=== PATIENT | male | born 1960 | race Caucasian/White ===

== ENCOUNTER 2021-06-14 08:13 | Outpatient (CLI) | payer OTHER | END 2021-06-14 08:14 | disposition home or self-care (01) | LOC: BICMAMMO 08:13 | PROVIDERS: ATTEND Family Medicine | DX: Z13.820 Encounter for screening for osteoporosis (principal); Z48.22 Encounter for aftercare following kidney transplant; M85.89 Other specified disorders of bone density and structure, multiple sites | CPT/HCPCS: 77080 ==

== ENCOUNTER 2024-08-18 12:16 | Inpatient (IN) | payer OTHER, SELFPAY ==
[2024-08-18 12:59] LABS: #Basophils 0.07 10x3/uL (0.0-0.2); #Eosinophils Less than 0.03 10x3/uL (0.0-0.7); %Basophils 0.4 % (0.0-1.0); %Eosinophils 0.1 % (0.0-10.0); %Lymphocytes 4.6 % (21.0-51.0); %Monocytes 5.6 % (0.0-10.0); %Neutrophils 88.2 % (42.0-75.0); Hematocrit 40.7 % (42.0-52.0); Hemoglobin 13.6 g/dL (14.0-18.0); Mean Corpuscular HGB CONC 33.4 g/dL (32.0-36.0); Mean Corpuscular Hemoglobin 29.7 pg (27.0-31.0); Mean Corpuscular Volume 88.9 fL (78.0-98.0); Mean Platelet Volume 9.9 fL (7.4-10.4); Platelet Count 160 10x3/uL (130-400); RBC Distribution Width 15.2 % (11.5-14.5); Red Blood Cell (RBC) Count 4.58 mill/uL (4.70-6.10)
[2024-08-18] MEDS: Cyanocobalamin (Vitamin B-12) 1,000 MCG TAB PO SCH (13:00)
[2024-08-18 13:19] LABS: ALT (SGPT) 15 U/L (8-55); AST (SGOT) 33 U/L (5-34); Albumin 3.3 g/dL (3.4-4.8); Alkaline Phosphatase 80 U/L (40-110); Anion Gap 16 mmol/L (10-20); BUN (Urea Nitrogen) 15 mg/dL (8.4-25.7); Bilirubin, Total 0.6 mg/dL (0.2-1.2); Calc. Creatinine Clearance 0 mL/min (70-130); Calcium 9.1 mg/dL (7.8-10.44); Carbon Dioxide 23 mmol/L (23-31); Chloride 98 mmol/L (98-107); Estimated GFR 88; Glucose 122 mg/dL (80-115); Potassium 4.1 mmol/L (3.5-5.1); Protein, Total 7.3 g/dL (5.8-8.1); Sodium 133 mmol/L (136-145)
[2024-08-18 13:20] LABS: Troponin I 0.078 ng/mL (< 0.028)
[2024-08-18] MEDS ORDERED: Cefepime 2 GM VIAL ONE (13:41)
[2024-08-18] MEDS ORDERED: Sodium Chloride 0.9% 100 ML ONE (13:41)
[2024-08-18] MEDS ORDERED: Acetaminophen 500 MG TAB ONE (13:41)
[2024-08-18] MEDS ORDERED: Vancomycin 1.75 GM in Sodium Chloride 0.9% 500 ML IVPB SCH (14:00)
[2024-08-18 14:33] LABS: Bacteria/HPF None Seen HPF (None Seen); Bilirubin Negative (Negative); Blood, Urine 1+ (Negative); CAUTI Indications for Culture Alt mental st,lethar; Clarity Clear (Clear); Glucose, Urine (Dipstick) Greater than 1000 mg/dL (Negative); Ketone, Urine Trace mg/dL (Negative); Leukocyte Negative Leu/uL (Negative); Nitrite Negative (Negative); Protein, Urine (Dipstick) 100 mg/dL (Neg-Trace); RBC/HPF 0-3 HPF (0-3); Specific Gravity, Urine 1.029 (1.002-1.036); Squamous Epithelial None Seen HPF (0-3); Urobilinogen Normal mg/dL (Less than 2); WBC/HPF 0-3 HPF (0-3)
[2024-08-18 14:37] LABS: Urine Culture Reflex No No
[2024-08-18] MEDS ORDERED: Aspirin Chewable 81 MG TAB ONE (14:49)
[2024-08-18 14:54] LABS: Amphetamine Not Detected (NotDetected); Barbiturates Screen Not Detected (NotDetected); Benzodiazepine Screen Not Detected (NotDetected); Cocaine Metabolite Screen Not Detected (NotDetected); Methadone Not Detected (NotDetected); Methamphetamine Not Detected (NotDetected); Opiate Screen Not Detected (NotDetected); Oxycodone Screen Not Detected (NotDetected); Phencyclidine (PCP) Not Detected (NotDetected); THC/Cannabinoid Screen Not Detected (NotDetected); Tricyclic Screen Not Detected (NotDetected)
[2024-08-18 15:01] LABS: Actual Bicarbonate (HCO3v) 24.6 mEq/L (22-28); Analyzer IN Cardio ER; Base Excess 1.5 mEq/L (-2.0 to +3.0); Calcium, Ionized (venous) 1.07 mmol/L (1.16-1.32); Chloride (VBG) 98 mmol/L (98-106); Hematocrit-VBG 40 % (42.0-52.0); Hemoglobin (Hb) 13.7 g/dL (13.1-17.2); Potassium (VBG) 3.58 mmol/L (3.70-5.30); Sodium 135 mmol/L (133-146); pH (venous) 7.476 (7.32-7.43)
[2024-08-18 15:08] LABS: Lipase 9 U/L (8-78)
[2024-08-18 15:10] LABS: Acetaminophen 12 mcg/mL (Less than 10); Alcohol Less than 10.0 mg/dL (Less than 10); Salicylate Less than 8.0 mg/dL (Less than 8.0)
[2024-08-18] MEDS ORDERED: Glucagon 1 MG/ML KIT IM PRN (16:04)
[2024-08-18] MEDS ORDERED: Dextrose 50% Abboject 50 ML SYRINGE SLOW IVP PRN (16:04)
[2024-08-18] MEDS ORDERED: Dextrose 5% in Water 1,000 ML IV PRN (16:04)
[2024-08-18] MEDS ORDERED: Albuterol 200 PUFF (6.7GM INHALER) INH PRN (16:46)
[2024-08-18 16:57] LABS: Legionella Urinary Ag Negative (Negative)
[2024-08-18 17:11] LABS: Troponin I 0.092 ng/mL (< 0.028)
[2024-08-18 17:12] LABS: Glucose 96 mg/dL (80-115)
[2024-08-18 20:23] LABS: Troponin I 0.071 ng/mL (< 0.028)
[2024-08-18 21:39] LABS: Glucose 103 mg/dL (80-115)
[2024-08-18] MEDS: Vancomycin (BATCH) 1.75 GM in Premix 1 BAG IVPB SCH (22:16)
[2024-08-18] MEDS: Azithromycin 500 MG in Sodium Chloride 0.9% 250 ML 250 ML IVPB SCH (22:18)
[2024-08-19] MEDS ORDERED: Atorvastatin Calcium 40 MG TAB ONE (00:30)
[2024-08-19] MEDS ORDERED: Lisinopril 10 MG TAB ONE (00:30)
[2024-08-19] MEDS ORDERED: Carvedilol 25 MG TAB ONE ×2 (00:31→08:55)
[2024-08-19] MEDS ORDERED: Tamsulosin HCl 0.4 MG CAP ONE (00:31)
[2024-08-19] MEDS ORDERED: Cefepime 2 GM VIAL ONE ×3 (00:34→17:44)
[2024-08-19] MEDS ORDERED: Sodium Chloride 0.9% 100 ML ONE ×3 (00:34→17:44)
[2024-08-19] MEDS: Tacrolimus 0.5 MG CAP PO SCH (00:51)
[2024-08-19] MEDS: Lisinopril 10 MG TAB PO SCH (00:51)
[2024-08-19] MEDS: Tacrolimus 1 MG CAP PO SCH (00:53)
[2024-08-19] MEDS: Carvedilol 25 MG TAB PO SCH (00:54)
[2024-08-19] MEDS: Mycophenolate DR 180 MG TAB PO SCH (00:54)
[2024-08-19] MEDS: Atorvastatin Calcium 40 MG TAB PO SCH (00:54)
[2024-08-19] MEDS: Tamsulosin HCl 0.4 MG CAP PO SCH (00:56)
[2024-08-19] MEDS: Lactated Ringer's 1,000 ML IV SCH ×3 (00:58→14:00)
[2024-08-19] MEDS: metFORMIN 500 MG TAB PO SCH ×3 (01:00→13:18)
[2024-08-19] MEDS: Cefepime 2 GM in Sodium Chloride 0.9% 100 ML IVPB SCH ×2 (01:04→09:02)
[2024-08-19] MEDS: Vancomycin 1.5 GM in Sodium Chloride 0.9% 250 ML 300 ML IVPB SCH (02:16)
[2024-08-19] MEDS ORDERED: Vancomycin 1 GM/200 ML (FROZEN) BAG ONE (02:24)
[2024-08-19] MEDS: Vancomycin 1 GM in Premix 1 BAG IVPB SCH (02:31)
[2024-08-19 05:58] LABS: #Basophils 0.03 10x3/uL (0.0-0.2); #Eosinophils Less than 0.03 10x3/uL (0.0-0.7); %Basophils 0.2 % (0.0-1.0); %Monocytes 2.9 % (0.0-10.0); %Neutrophils 93.2 % (42.0-75.0); Hematocrit 39.1 % (42.0-52.0); Hemoglobin 12.5 g/dL (14.0-18.0); Mean Corpuscular Hemoglobin 29.1 pg (27.0-31.0); Mean Corpuscular Volume 90.9 fL (78.0-98.0); Platelet Count 135 10x3/uL (130-400); RBC Distribution Width 15.6 % (11.5-14.5)
[2024-08-19 06:30] LABS: ALT (SGPT) 17 U/L (8-55); AST (SGOT) 48 U/L (5-34); Albumin 2.5 g/dL (3.4-4.8); Alkaline Phosphatase 60 U/L (40-110); Anion Gap 17 mmol/L (10-20); BUN (Urea Nitrogen) 16 mg/dL (8.4-25.7); Bilirubin, Total 0.5 mg/dL (0.2-1.2); Calc. Creatinine Clearance 93 mL/min (70-130); Calcium 8.6 mg/dL (7.8-10.44); Carbon Dioxide 19 mmol/L (23-31); Chloride 101 mmol/L (98-107); Estimated GFR 100; Globulin 3.8 g/dL (2.4-3.5); Glucose 112 mg/dL (80-115); Potassium 4.2 mmol/L (3.5-5.1); Protein, Total 6.3 g/dL (5.8-8.1); Sodium 133 mmol/L (136-145)
[2024-08-19 07:47] LABS: Glucose 114 mg/dL (80-115)
[2024-08-19 07:50] LABS: Vancomycin, Random 18.5 ug/mL (See Comment)
[2024-08-19] MEDS ORDERED: Aspirin Chewable 81 MG TAB ONE (08:55)
[2024-08-19] MEDS ORDERED: Amlodipine 5 MG TAB ONE (08:55)
[2024-08-19] MEDS ORDERED: Enoxaparin 40 MG (0.4 mL) SYRINGE ONE (08:56)
[2024-08-19] MEDS ORDERED: predniSONE 5 MG TAB PO SCH (09:00)
[2024-08-19] MEDS: Enoxaparin 40 MG (0.4 mL) SYRINGE SC SCH (09:02)
[2024-08-19] MEDS: Aspirin Chewable 81 MG TAB PO SCH (09:02)
[2024-08-19] MEDS: Amlodipine 10 MG TAB PO SCH (09:02)
[2024-08-19] MEDS: Acetaminophen 650 MG Suppository PR PRN (09:17)
[2024-08-19] MEDS ORDERED: Acetaminophen 325 MG TAB ONE (09:18)
[2024-08-19] MEDS: Acetaminophen 500 MG TAB PO SCH (10:30)
[2024-08-19 11:58] LABS: Glucose 210 mg/dL (80-115)
[2024-08-19] MEDS ORDERED: Vancomycin 1 GM in Premix 1 BAG IVPB SCH (12:00)
[2024-08-19] MEDS: Ipratropium/Albuterol 3 ML NEB NEB SCH (12:35)
[2024-08-19] MEDS: Magnesium Oxide 400 MG TAB PO SCH (13:18)
[2024-08-19] MEDS ORDERED: Ipratropium/Albuterol 3 ML NEB ONE ×2 (13:28→19:00)
[2024-08-19] MEDS: VANCOMYCIN 1.25 GM/250 ML BAG 1.25 GM in Premix 1 BAG IVPB SCH (14:12)
[2024-08-19 14:36] LABS: Actual Bicarbonate (HCO3a) 23.7 mEq/L (22-28); Base Excess (BEa) -2.4 mEq/L (-2.0 to +3.0); CO2 Tension 46.3 mmHg (35.0-45.0); Calcium, Ionized (arterial) 1.15 mmol/L (1.12-1.30); Hematocrit-ABG 37 % (42.0-52.0); Hemoglobin (Hb) 12.5 g/dL (14.0-18.0); Potassium - ABG Lab 3.59 mmol/L (3.70-5.30); pH, Arterial 7.327 (7.35-7.45)
[2024-08-19 14:38] LABS: Puncture Site Right Brachial art
[2024-08-19 14:39] LABS: ALV-art Gradient 161.325 mmHg (0-20)
[2024-08-19] MEDS: Fluticasone Propionate Nasal Spray 16 gm Bottle NASAL SCH (14:43)
[2024-08-19] MEDS: Cholecalciferol 1,000 UNITS (25 MCG) TAB PO SCH (15:09)
[2024-08-19] MEDS: Azithromycin 500 MG in Sodium Chloride 0.9% 250 ML 250 ML IVPB SCH (15:47)
[2024-08-19] MEDS ORDERED: Furosemide 40 MG (4 mL) VIAL SLOW IVP SCH (16:30)
[2024-08-19] MEDS: predniSONE 20 MG TAB PO SCH (16:55)
[2024-08-19] MEDS ORDERED: Furosemide 20 MG (2 mL) VIAL ONE (17:28)
[2024-08-19] MEDS: Furosemide 40 MG (4 mL) VIAL SLOW IVP SCH (17:33)
[2024-08-19 21:34] LABS: Glucose 166 mg/dL (80-115)
[2024-08-20 00:10] LABS: Glucose 180 mg/dL (80-115)
[2024-08-20] MEDS ORDERED: Ipratropium/Albuterol 3 ML NEB ONE ×2 (00:43→00:53)
[2024-08-20] MEDS ORDERED: Sodium Chloride For Inhalation 0.9% 3 ML NEB ONE (00:53)
[2024-08-20 03:40] LABS: Strep pneumo Urine Ag NEGATIVE (NEGATIVE)
[2024-08-20 03:43] LABS: #Basophils Less than 0.03 10x3/uL (0.0-0.2); #Eosinophils Less than 0.03 10x3/uL (0.0-0.7); %Basophils 0.2 % (0.0-1.0); %Lymphocytes 3.9 % (21.0-51.0); %Monocytes 3.8 % (0.0-10.0); %Neutrophils 91.4 % (42.0-75.0); Hematocrit 33.6 % (42.0-52.0); Hemoglobin 10.9 g/dL (14.0-18.0); Mean Corpuscular HGB CONC 32.4 g/dL (32.0-36.0); Mean Corpuscular Hemoglobin 29.5 pg (27.0-31.0); Mean Corpuscular Volume 90.8 fL (78.0-98.0); Mean Platelet Volume 10.6 fL (7.4-10.4); Platelet Count 155 10x3/uL (130-400); RBC Distribution Width 15.8 % (11.5-14.5)
[2024-08-20 03:50] LABS: ALT (SGPT) 21 U/L (8-55); AST (SGOT) 47 U/L (5-34); Albumin 2.5 g/dL (3.4-4.8); Alkaline Phosphatase 67 U/L (40-110); Anion Gap 21 mmol/L (10-20); BUN (Urea Nitrogen) 32 mg/dL (8.4-25.7); Bilirubin, Total 0.4 mg/dL (0.2-1.2); Calc. Creatinine Clearance 69 mL/min (70-130); Calcium 8.8 mg/dL (7.8-10.44); Carbon Dioxide 16 mmol/L (23-31); Chloride 102 mmol/L (98-107); Estimated GFR 78; Globulin 3.8 g/dL (2.4-3.5); Glucose 179 mg/dL (80-115); Protein, Total 6.3 g/dL (5.8-8.1); Sodium 135 mmol/L (136-145)
[2024-08-20] MEDS: Insulin Lispro 100 UNIT/ML 10 ML VIAL SC PRN ×2 (06:15→22:17)
[2024-08-20 08:13] LABS: Glucose 166 mg/dL (80-115)
[2024-08-20] MEDS: predniSONE 20 MG TAB PO SCH (08:37)
[2024-08-20] MEDS: Famotidine/PF 20 mg/2ml Vial SLOW IVP SCH (08:38)
[2024-08-20] MEDS: FLU (Fluarix Triv) TS24-25(6MOS UP)/PF 45 MCG/0.5 ML Syringe IM ONE (08:59)
[2024-08-20 12:13] LABS: Glucose 207 mg/dL (80-115)
[2024-08-20] MEDS: Vancomycin 1 GM in Premix 1 BAG IVPB SCH (14:53)
[2024-08-20 17:42] LABS: Glucose 285 mg/dL (80-115)
[2024-08-20] MEDS: Acetaminophen 500 MG TAB PO PRN (17:48)
[2024-08-20] MEDS: Tacrolimus 0.5 MG CAP PO SCH (17:51)
[2024-08-20 22:05] LABS: Glucose 266 mg/dL (80-115)
[2024-08-21 05:55] LABS: #Basophils Less than 0.03 10x3/uL (0.0-0.2); #Eosinophils Less than 0.03 10x3/uL (0.0-0.7); %Basophils 0.2 % (0.0-1.0); %Eosinophils 0.2 % (0.0-10.0); %Lymphocytes 3.7 % (21.0-51.0); %Monocytes 6.8 % (0.0-10.0); %Neutrophils 88.6 % (42.0-75.0); Hematocrit 36.6 % (42.0-52.0); Mean Corpuscular HGB CONC 32.8 g/dL (32.0-36.0); Mean Corpuscular Hemoglobin 29.6 pg (27.0-31.0); Mean Corpuscular Volume 90.1 fL (78.0-98.0); Mean Platelet Volume 10.1 fL (7.4-10.4); Platelet Count 187 10x3/uL (130-400); RBC Distribution Width 15.4 % (11.5-14.5); Red Blood Cell (RBC) Count 4.06 mill/uL (4.70-6.10)
[2024-08-21 06:16] LABS: Vancomycin, Random 26.3 ug/mL (See Comment)
[2024-08-21 06:18] LABS: ALT (SGPT) 25 U/L (8-55); AST (SGOT) 49 U/L (5-34); Albumin 2.4 g/dL (3.4-4.8); Alkaline Phosphatase 72 U/L (40-110); Anion Gap 14 mmol/L (10-20); BUN (Urea Nitrogen) 34 mg/dL (8.4-25.7); Bilirubin, Total 0.4 mg/dL (0.2-1.2); Calc. Creatinine Clearance 125 mL/min (70-130); Calcium 9.4 mg/dL (7.8-10.44); Carbon Dioxide 21 mmol/L (23-31); Chloride 102 mmol/L (98-107); Estimated GFR 98; Globulin 3.9 g/dL (2.4-3.5); Glucose 167 mg/dL (80-115); Potassium 3.4 mmol/L (3.5-5.1); Protein, Total 6.3 g/dL (5.8-8.1); Sodium 134 mmol/L (136-145)
[2024-08-21 08:10] LABS: Glucose 170 mg/dL (80-115)
[2024-08-21 10:30] LABS: Actual Bicarbonate (HCO3a) 21.1 mEq/L (22-28); Base Excess (BEa) -1.9 mEq/L (-2.0 to +3.0); CO2 Tension 31.1 mmHg (35.0-45.0); Calcium, Ionized (arterial) 1.23 mmol/L (1.12-1.30); Carboxyhemoglobin (COHb) 0.6 gm% (0.0-3.0); Hematocrit-ABG 38 % (42.0-52.0); Hemoglobin (Hb) 12.9 g/dL (14.0-18.0); Potassium - ABG Lab 3.37 mmol/L (3.70-5.30)
[2024-08-21] MEDS ORDERED: Electrolyte Replacement Protocol 1 EACH FS PRN (10:33)
[2024-08-21 10:46] LABS: O2 Tension (PaO2), arterial 53.9 mmHg (> 80.0); Puncture Site Right Radial artery
[2024-08-21 11:39] LABS: Glucose 232 mg/dL (80-115)
[2024-08-21] MEDS: Potassium Chloride 20 MEQ TAB PO SCH (14:41)
[2024-08-21 16:07] LABS: Potassium 3.5 mmol/L (3.5-5.1)
[2024-08-21 21:37] LABS: Glucose 221 mg/dL (80-115)
[2024-08-22] MEDS: Albuterol 2.5 MG (3 mL) NEB NEB PRN (05:29)
[2024-08-22 07:23] LABS: #Basophils Less than 0.03 10x3/uL (0.0-0.2); #Eosinophils Less than 0.03 10x3/uL (0.0-0.7); %Basophils 0.1 % (0.0-1.0); %Eosinophils 0.1 % (0.0-10.0); %Lymphocytes 3.9 % (21.0-51.0); Hematocrit 33.5 % (42.0-52.0); Mean Corpuscular HGB CONC 32.8 g/dL (32.0-36.0); Mean Corpuscular Hemoglobin 29.3 pg (27.0-31.0); Mean Corpuscular Volume 89.3 fL (78.0-98.0); Mean Platelet Volume 9.4 fL (7.4-10.4); Platelet Count 185 10x3/uL (130-400); RBC Distribution Width 15.6 % (11.5-14.5); Red Blood Cell (RBC) Count 3.75 mill/uL (4.70-6.10)
[2024-08-22 07:36] LABS: Glucose 152 mg/dL (80-115)
[2024-08-22 07:41] LABS: ALT (SGPT) 28 U/L (8-55); AST (SGOT) 42 U/L (5-34); Albumin 2.1 g/dL (3.4-4.8); Alkaline Phosphatase 58 U/L (40-110); Anion Gap 18 mmol/L (10-20); BUN (Urea Nitrogen) 25 mg/dL (8.4-25.7); Bilirubin, Total 0.5 mg/dL (0.2-1.2); Calc. Creatinine Clearance 123 mL/min (70-130); Calcium 8.9 mg/dL (7.8-10.44); Carbon Dioxide 19 mmol/L (23-31); Chloride 104 mmol/L (98-107); Estimated GFR 97; Globulin 3.7 g/dL (2.4-3.5); Glucose 151 mg/dL (80-115); Potassium 3.5 mmol/L (3.5-5.1); Protein, Total 5.8 g/dL (5.8-8.1); Sodium 137 mmol/L (136-145)
[2024-08-22 12:24] LABS: Glucose 146 mg/dL (80-115)
[2024-08-22] MEDS ORDERED: Electrolyte Replacement Protocol FS PRN (13:00)
[2024-08-22 14:13] LABS: Tacrolimus 2.3 ng/mL (2.0-20.0)
[2024-08-22] MEDS: Potassium Chloride 20 MEQ TAB PO SCH (14:26)
[2024-08-22 18:35] LABS: Potassium 4.2 mmol/L (3.5-5.1)
[2024-08-22] MEDS: Famotidine/PF 20 mg/2ml Vial SLOW IVP SCH (20:35)
[2024-08-23 05:38] LABS: ALT (SGPT) 28 U/L (8-55); AST (SGOT) 44 U/L (5-34); Alkaline Phosphatase 62 U/L (40-110); Anion Gap 14 mmol/L (10-20); BUN (Urea Nitrogen) 23 mg/dL (8.4-25.7); Bilirubin, Total 0.5 mg/dL (0.2-1.2); Calc. Creatinine Clearance 128 mL/min (70-130); Calcium 9.2 mg/dL (7.8-10.44); Carbon Dioxide 22 mmol/L (23-31); Chloride 104 mmol/L (98-107); Estimated GFR 98; Globulin 3.7 g/dL (2.4-3.5); Glucose 142 mg/dL (80-115); Magnesium 1.8 mg/dL (1.6-2.6); Potassium 3.8 mmol/L (3.5-5.1); Protein, Total 5.7 g/dL (5.8-8.1); Sodium 136 mmol/L (136-145)
[2024-08-23 06:34] LABS: #Basophils Less than 0.03 10x3/uL (0.0-0.2); #Eosinophils Less than 0.03 10x3/uL (0.0-0.7); %Basophils 0.2 % (0.0-1.0); %Eosinophils 0.2 % (0.0-10.0); %Lymphocytes 4.1 % (21.0-51.0); %Monocytes 6.8 % (0.0-10.0); %Neutrophils 87.1 % (42.0-75.0); Hematocrit 33.2 % (42.0-52.0); Hemoglobin 10.9 g/dL (14.0-18.0); Mean Corpuscular HGB CONC 32.8 g/dL (32.0-36.0); Mean Corpuscular Hemoglobin 29.4 pg (27.0-31.0); Mean Corpuscular Volume 89.5 fL (78.0-98.0); Platelet Count 220 10x3/uL (130-400); RBC Distribution Width 15.9 % (11.5-14.5); Red Blood Cell (RBC) Count 3.71 mill/uL (4.70-6.10)
[2024-08-23 07:48] LABS: Glucose 138 mg/dL (80-115)
[2024-08-23] MEDS: Lisinopril 10 MG TAB PO SCH (09:52)
[2024-08-23] MEDS: Magnesium 2 GM/50 ML(in water) 2 GM in Premix 1 BAG IVPB SCH (09:52)
[2024-08-23] MEDS: Amlodipine 10 MG TAB PO SCH (09:53)
[2024-08-23] MEDS: cefTRIAXone\\ROCEPHIN 2 GM in Sodium Chloride 0.9% 100 ML IVPB SCH (09:53)
[2024-08-23] MEDS: predniSONE 20 MG TAB PO SCH (10:27)
[2024-08-23 12:05] LABS: Glucose 180 mg/dL (80-115)
[2024-08-23] MEDS: Ipratropium/Albuterol 3 ML NEB NEB SCH (14:12)
[2024-08-24 05:52] LABS: #Basophils Less than 0.03 10x3/uL (0.0-0.2); %Basophils 0.2 % (0.0-1.0); %Eosinophils 0.4 % (0.0-10.0); %Lymphocytes 6.5 % (21.0-51.0); %Monocytes 7.2 % (0.0-10.0); %Neutrophils 83.4 % (42.0-75.0); Hematocrit 32.9 % (42.0-52.0); Hemoglobin 10.8 g/dL (14.0-18.0); Mean Corpuscular HGB CONC 32.8 g/dL (32.0-36.0); Mean Corpuscular Volume 88.2 fL (78.0-98.0); Mean Platelet Volume 10.1 fL (7.4-10.4); Platelet Count 297 10x3/uL (130-400); RBC Distribution Width 15.7 % (11.5-14.5); Red Blood Cell (RBC) Count 3.73 mill/uL (4.70-6.10)
[2024-08-24 06:46] LABS: ALT (SGPT) 35 U/L (8-55); AST (SGOT) 44 U/L (5-34); Alkaline Phosphatase 77 U/L (40-110); Anion Gap 16 mmol/L (10-20); BUN (Urea Nitrogen) 24 mg/dL (8.4-25.7); Bilirubin, Total 0.6 mg/dL (0.2-1.2); Calc. Creatinine Clearance 138 mL/min (70-130); Carbon Dioxide 20 mmol/L (23-31); Chloride 108 mmol/L (98-107); Estimated GFR 101; Globulin 3.7 g/dL (2.4-3.5); Glucose 197 mg/dL (80-115); Magnesium 1.6 mg/dL (1.6-2.6); Potassium 3.7 mmol/L (3.5-5.1); Protein, Total 5.7 g/dL (5.8-8.1); Sodium 140 mmol/L (136-145)
[2024-08-24 07:41] LABS: Glucose 173 mg/dL (80-115)
[2024-08-24] MEDS: Magnesium 2 GM/50 ML(in water) 2 GM in Premix 1 BAG IVPB SCH (08:38)
[2024-08-24] MEDS: predniSONE 5 MG TAB PO SCH (08:39)
[2024-08-24 17:15] LABS: Glucose 246 mg/dL (80-115)
[2024-08-24 21:27] LABS: Glucose 228 mg/dL (80-115)
[2024-08-25 05:37] LABS: ALT (SGPT) 35 U/L (8-55); AST (SGOT) 38 U/L (5-34); Albumin 2.2 g/dL (3.4-4.8); Alkaline Phosphatase 86 U/L (40-110); Anion Gap 15 mmol/L (10-20); BUN (Urea Nitrogen) 18 mg/dL (8.4-25.7); Bilirubin, Total 0.6 mg/dL (0.2-1.2); Calc. Creatinine Clearance 145 mL/min (70-130); Carbon Dioxide 24 mmol/L (23-31); Chloride 107 mmol/L (98-107); Estimated GFR 102; Globulin 3.6 g/dL (2.4-3.5); Glucose 190 mg/dL (80-115); Potassium 3.5 mmol/L (3.5-5.1); Protein, Total 5.8 g/dL (5.8-8.1); Sodium 142 mmol/L (136-145)
[2024-08-25 05:39] LABS: Hematocrit 34.4 % (42.0-52.0); Hemoglobin 11.3 g/dL (14.0-18.0); Mean Corpuscular HGB CONC 32.8 g/dL (32.0-36.0); Mean Corpuscular Volume 88.4 fL (78.0-98.0); Platelet Count 343 10x3/uL (130-400); RBC Distribution Width 15.7 % (11.5-14.5); Red Blood Cell (RBC) Count 3.89 mill/uL (4.70-6.10)
[2024-08-25 06:29] LABS: Anisocytosis SLIGHT = 6-15 cells HPF (0-5); Band 2 % (5-11); Lymphocytes 4 % (21-51); Macrocytosis SLIGHT = 6-15 cells HPF (0-5); Monocytes 6 % (0-10); Myelocyte 1 % (0-0); Neutrophil 83 % (42-75); Nucleated RBC (Manual Ct) 1 % (0); Platelet Adequacy Comment Platelets Normal; Poikilocytosis SLIGHT = 6-15 cells HPF (0-5); Polychromasia SLIGHT = 2-3 cells HPF (0-2); Reactive Lymphocytes 4 % (0-10)
[2024-08-25 07:53] LABS: Magnesium 1.4 mg/dL (1.6-2.6)
[2024-08-25] MEDS: Potassium Chloride 20 MEQ TAB PO SCH (09:04)
[2024-08-25] MEDS: Magnesium Sulfate In Water 4 GM in Premix 1 BAG IVPB SCH (11:22)
[2024-08-25] MEDS: Carvedilol 25 MG TAB PO SCH ×2 (11:23→20:13)
[2024-08-25] MEDS: Insulin Glargine 30 UNITS/0.3 ML VIAL SC SCH (11:23)
[2024-08-25 12:21] VITALS: BMI 30.4
[2024-08-26 04:55] VITALS: BMI 43.0
[2024-08-26 05:02] LABS: Hematocrit 35.1 % (42.0-52.0); Hemoglobin 11.4 g/dL (14.0-18.0); Mean Corpuscular HGB CONC 32.5 g/dL (32.0-36.0); Mean Corpuscular Hemoglobin 28.8 pg (27.0-31.0); Mean Corpuscular Volume 88.6 fL (78.0-98.0); Mean Platelet Volume 9.9 fL (7.4-10.4); Platelet Count 394 10x3/uL (130-400); RBC Distribution Width 15.8 % (11.5-14.5); Red Blood Cell (RBC) Count 3.96 mill/uL (4.70-6.10)
[2024-08-26 05:29] LABS: Anisocytosis SLIGHT = 6-15 cells HPF (0-5); Band 1 % (5-11); Eosinophils 4 % (0-10); Hypochromia SLIGHT = 6-15 cells HPF (0-5); Lymphocytes 4 % (21-51); Monocytes 8 % (0-10); Myelocyte 3 % (0-0); Neutrophil 78 % (42-75); Nucleated RBC (Manual Ct) 2 % (0); Platelet Adequacy Comment Platelets Normal; Polychromasia SLIGHT = 2-3 cells HPF (0-2); Promyelocytes 2 % (0-0)
[2024-08-26 05:42] LABS: ALT (SGPT) 34 U/L (8-55); AST (SGOT) 38 U/L (5-34); Albumin 2.3 g/dL (3.4-4.8); Alkaline Phosphatase 101 U/L (40-110); Anion Gap 16 mmol/L (10-20); BUN (Urea Nitrogen) 19 mg/dL (8.4-25.7); Bilirubin, Total 0.5 mg/dL (0.2-1.2); Calc. Creatinine Clearance 202 mL/min (70-130); Calcium 8.7 mg/dL (7.8-10.44); Carbon Dioxide 21 mmol/L (23-31); Chloride 108 mmol/L (98-107); Estimated GFR 104; Globulin 3.9 g/dL (2.4-3.5); Glucose 211 mg/dL (80-115); Potassium 4.6 mmol/L (3.5-5.1); Protein, Total 6.2 g/dL (5.8-8.1); Sodium 140 mmol/L (136-145)
[2024-08-26 08:09] LABS: Glucose 210 mg/dL (80-115)
[2024-08-26] MEDS: Insulin Glargine 30 UNITS/0.3 ML VIAL SC SCH (08:56)
[2024-08-26 17:11] VITALS: BP 130/76; TEMP 98.1
[2024-08-27 09:37] LABS: Tacrolimus 8.3 ng/mL (2.0-20.0)
== END 2024-08-26 17:25 | disposition home or self-care (01) | DRG 871 ==
LOC: ERS 12:16 → ERHOLD 15:10 → SURG A 08-19 11:43 → IMCU/EMU 08-20 01:24 → T4-A 08-23 17:30
PROVIDERS: ADMIT Internal Medicine; ATTEND Internal Medicine
DX: A41.9 Sepsis, unspecified organism (principal); G93.41 Metabolic encephalopathy; J96.01 Acute respiratory failure with hypoxia; I21.A1 Myocardial infarction type 2; J12.89 Other viral pneumonia; Z94.0 Kidney transplant status; E87.3 Alkalosis; J44.0 Chronic obstructive pulmonary disease with (acute) lower respiratory infection; E87.1 Hypo-osmolality and hyponatremia; I12.9 Hypertensive chronic kidney disease with stage 1 through stage 4 chronic kidney disease, or unspecified chronic kidney disease; E78.5 Hyperlipidemia, unspecified; E11.22 Type 2 diabetes mellitus with diabetic chronic kidney disease; G47.33 Obstructive sleep apnea (adult) (pediatric); B97.89 Other viral agents as the cause of diseases classified elsewhere; N18.9 Chronic kidney disease, unspecified; Z87.891 Personal history of nicotine dependence; Z79.899 Other long term (current) drug therapy
CPT/HCPCS: 36415; 36416; 36600; 70450; 71045; 71250; 80053; 80197; 80202; 80306; 80307; 81001; 82140; 82805; 82947; 83605; 83690; 83735; 83880; 84145; 84443; 84484; 85025; 87040; 87081; 87428; 87449; 87633; 87899; 90656; 93005; 93306; 94640; 94760; 96374; 96375; J0456; J0692; J0696; J1650; J1815; J1940; J3370; J3475; J3490; J7030; J7050; J7120; J7507; J7512; J7518; J7611; J7620

== ENCOUNTER 2024-09-05 18:47 | Inpatient (IN) | payer OTHER ==
[2024-09-05] MEDS ORDERED: Ondansetron ODT 4 MG TAB PO PRN (20:47)
[2024-09-05] MEDS ORDERED: Acetaminophen 325 MG TAB PO PRN (20:47)
[2024-09-05] MEDS ORDERED: Dextrose 50% Abboject 50 ML SYRINGE SLOW IVP PRN (21:27)
[2024-09-05] MEDS ORDERED: Glucagon 1 MG/ML KIT IM PRN (21:27)
[2024-09-05] MEDS ORDERED: Insulin Lispro 100 UNIT/ML 10 ML VIAL SC PRN (21:27)
[2024-09-05] MEDS ORDERED: Dextrose 5% in Water 1,000 ML IV PRN (21:27)
[2024-09-05] MEDS ORDERED: Albuterol 200 PUFF (6.7GM INHALER) INH PRN (21:39)
[2024-09-05 21:41] VITALS: BMI 28.5
[2024-09-05 22:05] LABS: Hematocrit 24.9 % (42.0-52.0); Hemoglobin 7.4 g/dL (14.0-18.0)
[2024-09-05] MEDS: Tacrolimus 0.5 MG CAP PO SCH (22:51)
[2024-09-05] MEDS: Magnesium Oxide 400 MG TAB PO SCH (22:51)
[2024-09-06 05:18] LABS: #Basophils 0.04 10x3/uL (0.0-0.2); %Basophils 0.6 % (0.0-1.0); %Eosinophils 1.6 % (0.0-10.0); %Lymphocytes 11.8 % (21.0-51.0); %Monocytes 6.1 % (0.0-10.0); %Neutrophils 79.3 % (42.0-75.0); Hemoglobin 6.5 g/dL (14.0-18.0); Mean Corpuscular HGB CONC 29.5 g/dL (32.0-36.0); Mean Corpuscular Hemoglobin 28.1 pg (27.0-31.0); Mean Corpuscular Volume 95.2 fL (78.0-98.0); Mean Platelet Volume 9.3 fL (7.4-10.4); Platelet Count 295 10x3/uL (130-400); RBC Distribution Width 19.2 % (11.5-14.5); Red Blood Cell (RBC) Count 2.31 mill/uL (4.70-6.10)
[2024-09-06 05:37] LABS: ALT (SGPT) 13 U/L (8-55); AST (SGOT) 15 U/L (5-34); Albumin 2.4 g/dL (3.4-4.8); Alkaline Phosphatase 80 U/L (40-110); Anion Gap 10 mmol/L (10-20); BUN (Urea Nitrogen) 10 mg/dL (8.4-25.7); Bilirubin, Total 0.4 mg/dL (0.2-1.2); Calc. Creatinine Clearance 112 mL/min (70-130); Calcium 8.3 mg/dL (7.8-10.44); Carbon Dioxide 24 mmol/L (23-31); Chloride 109 mmol/L (98-107); Estimated GFR 99; Globulin 2.7 g/dL (2.4-3.5); Glucose 144 mg/dL (80-115); Potassium 3.2 mmol/L (3.5-5.1); Protein, Total 5.1 g/dL (5.8-8.1); Sodium 140 mmol/L (136-145)
[2024-09-06 06:42] LABS: Hemoglobin 6.8 g/dL (14.0-18.0)
[2024-09-06] MEDS ORDERED: Carvedilol 25 MG TAB PO SCH (09:00)
[2024-09-06] MEDS ORDERED: Amlodipine 10 MG TAB PO SCH (09:00)
[2024-09-06] MEDS ORDERED: Aspirin Chewable 81 MG TAB PO SCH (09:00)
[2024-09-06] MEDS ORDERED: Insulin Glargine 30 UNITS/0.3 ML VIAL SC SCH (09:00)
[2024-09-06] MEDS ORDERED: Midazolam HCl 2 mg/2 ml Vial ONE (10:11)
[2024-09-06] MEDS ORDERED: PROPOFOL 20 ML ONE ×2 (10:11→10:30)
[2024-09-06] MEDS ORDERED: Lidocaine 1% PF 5 ML VIAL ONE (10:17)
[2024-09-06 11:31] VITALS: BMI 28.5
[2024-09-06] MEDS: Fluticasone Propionate Nasal Spray 16 gm Bottle NASAL SCH (12:02)
[2024-09-06] MEDS: Potassium Chloride 10 MEQ TAB PO SCH (12:03)
[2024-09-06] MEDS: predniSONE 5 MG TAB PO SCH (12:03)
[2024-09-06] MEDS: Potassium Chloride 20 MEQ TAB PO SCH (12:03)
[2024-09-06] MEDS: Mycophenolate DR 180 MG TAB PO SCH (12:03)
[2024-09-06] MEDS: Multivit, Therapeutic 1 TAB PO SCH (12:04)
[2024-09-06] MEDS: Tacrolimus 1 MG CAP PO SCH (12:04)
[2024-09-06] MEDS: Magnesium Oxide 400 MG TAB PO SCH (12:04)
[2024-09-06] MEDS: metFORMIN 500 MG TAB PO SCH (12:04)
[2024-09-06] MEDS: Pantoprazole 40 MG VIAL IVP SCH (12:04)
[2024-09-06] MEDS: Empagliflozin 25 MG TAB PO SCH (12:04)
[2024-09-06] MEDS: Cyanocobalamin (Vitamin B-12) 1,000 MCG TAB PO SCH (12:04)
[2024-09-06] MEDS: Cholecalciferol 1,000 UNITS (25 MCG) TAB PO SCH (12:04)
[2024-09-06] MEDS: Furosemide 80 MG TAB PO SCH (12:05)
[2024-09-06] MEDS ORDERED: Insulin Lispro 100 UNIT/ML 10 ML VIAL SC PRN (16:14)
[2024-09-06 19:57] LABS: Hematocrit 26.4 % (42.0-52.0); Hemoglobin 7.9 g/dL (14.0-18.0); Platelet Count 144 10x3/uL (130-400)
[2024-09-06] MEDS: Atorvastatin Calcium 40 MG TAB PO SCH (20:36)
[2024-09-06] MEDS ORDERED: Lisinopril 10 MG TAB PO SCH (21:00)
[2024-09-07 09:19] LABS: #Basophils 0.04 10x3/uL (0.0-0.2); %Basophils 0.7 % (0.0-1.0); %Lymphocytes 14.5 % (21.0-51.0); %Monocytes 7.5 % (0.0-10.0); %Neutrophils 74.9 % (42.0-75.0); Hematocrit 25.9 % (42.0-52.0); Hemoglobin 7.8 g/dL (14.0-18.0); Mean Corpuscular HGB CONC 30.1 g/dL (32.0-36.0); Mean Corpuscular Hemoglobin 28.4 pg (27.0-31.0); Mean Corpuscular Volume 94.2 fL (78.0-98.0); Mean Platelet Volume 9.1 fL (7.4-10.4); Platelet Count 253 10x3/uL (130-400); RBC Distribution Width 18.1 % (11.5-14.5); Red Blood Cell (RBC) Count 2.75 mill/uL (4.70-6.10)
[2024-09-07] MEDS: Lisinopril 10 MG TAB PO SCH (10:13)
[2024-09-07 13:14] LABS: Anion Gap 13 mmol/L (10-20); BUN (Urea Nitrogen) 7 mg/dL (8.4-25.7); Calc. Creatinine Clearance 115 mL/min (70-130); Carbon Dioxide 21 mmol/L (23-31); Chloride 110 mmol/L (98-107); Estimated GFR 100; Glucose 161 mg/dL (80-115); Potassium 4.3 mmol/L (3.5-5.1); Sodium 140 mmol/L (136-145)
[2024-09-08 05:24] LABS: #Basophils 0.05 10x3/uL (0.0-0.2); %Basophils 0.7 % (0.0-1.0); %Eosinophils 1.8 % (0.0-10.0); %Lymphocytes 11.5 % (21.0-51.0); %Monocytes 7.8 % (0.0-10.0); %Neutrophils 77.7 % (42.0-75.0); Hemoglobin 8.6 g/dL (14.0-18.0); Mean Corpuscular HGB CONC 30.7 g/dL (32.0-36.0); Mean Corpuscular Hemoglobin 29.1 pg (27.0-31.0); Mean Corpuscular Volume 94.6 fL (78.0-98.0); Mean Platelet Volume 10.5 fL (7.4-10.4); Platelet Count 255 10x3/uL (130-400); RBC Distribution Width 18.3 % (11.5-14.5); Red Blood Cell (RBC) Count 2.96 mill/uL (4.70-6.10)
[2024-09-08 06:40] LABS: ALT (SGPT) 13 U/L (8-55); AST (SGOT) 13 U/L (5-34); Albumin 2.7 g/dL (3.4-4.8); Alkaline Phosphatase 86 U/L (40-110); Anion Gap 10 mmol/L (10-20); BUN (Urea Nitrogen) 6 mg/dL (8.4-25.7); Bilirubin, Total 0.7 mg/dL (0.2-1.2); Calc. Creatinine Clearance 123 mL/min (70-130); Calcium 8.6 mg/dL (7.8-10.44); Carbon Dioxide 26 mmol/L (23-31); Chloride 111 mmol/L (98-107); Estimated GFR 102; Globulin 2.3 g/dL (2.4-3.5); Glucose 94 mg/dL (80-115); Potassium 4.1 mmol/L (3.5-5.1); Sodium 143 mmol/L (136-145)
[2024-09-08] MEDS: Furosemide 80 MG TAB PO SCH (10:16)
[2024-09-08] MEDS: Lisinopril 10 MG TAB PO SCH (10:16)
[2024-09-08] MEDS: Pantoprazole DR 40 MG TAB PO SCH (10:16)
[2024-09-08] MEDS: Ferrous Sulfate 325 MG TAB PO SCH (13:51)
[2024-09-08 16:54] VITALS: BP 117/72; TEMP 97.9
== END 2024-09-08 16:25 | disposition home or self-care (01) | DRG 811 ==
LOC: OBS 19:55 → OBSVTOIN 20:47 → MSONC 09-07 10:44
PROVIDERS: ADMIT Family Medicine; ATTEND Family Medicine
PROC: 0DB78ZX Excision of Stomach, Pylorus, Via Natural or Artificial Opening Endoscopic, Diagnostic (ICD-10-PCS; principal; 2024-09-06)
PROC: 30233N1 Transfusion of Nonautologous Red Blood Cells into Peripheral Vein, Percutaneous Approach (ICD-10-PCS; 2024-09-06)
DX: D62 Acute posthemorrhagic anemia (principal); K26.6 Chronic or unspecified duodenal ulcer with both hemorrhage and perforation; Z94.0 Kidney transplant status; E11.9 Type 2 diabetes mellitus without complications; N40.0 Benign prostatic hyperplasia without lower urinary tract symptoms; J45.909 Unspecified asthma, uncomplicated; I25.10 Atherosclerotic heart disease of native coronary artery without angina pectoris; E87.6 Hypokalemia; E83.42 Hypomagnesemia; I95.9 Hypotension, unspecified; Z79.82 Long term (current) use of aspirin; Z79.51 Long term (current) use of inhaled steroids; Z79.84 Long term (current) use of oral hypoglycemic drugs; Z79.899 Other long term (current) drug therapy; Z79.52 Long term (current) use of systemic steroids
CPT/HCPCS: 36415; 36416; 36430; 80048; 80053; 83735; 84145; 85025; 85046; 86850; 86900; 86901; 88305; 88342; J2250; J2470; J2704; J7507; J7512; J7518; P9016

== ENCOUNTER 2024-10-21 12:47 | Inpatient (IN) | payer BC, OTHER ==
[2024-10-21 13:41] LABS: #Basophils 0.07 10x3/uL (0.0-0.2); %Basophils 0.6 % (0.0-1.0); %Eosinophils 1.2 % (0.0-10.0); %Lymphocytes 9.3 % (21.0-51.0); %Neutrophils 81.6 % (42.0-75.0); Hematocrit 41.5 % (42.0-52.0); Mean Corpuscular HGB CONC 31.3 g/dL (32.0-36.0); Mean Corpuscular Hemoglobin 25.9 pg (27.0-31.0); Mean Corpuscular Volume 82.7 fL (78.0-98.0); Mean Platelet Volume 10.1 fL (7.4-10.4); Platelet Count 298 10x3/uL (130-400); Red Blood Cell (RBC) Count 5.02 mill/uL (4.70-6.10)
[2024-10-21 13:53] LABS: Troponin I 0.015 ng/mL (< 0.028)
[2024-10-21 14:21] LABS: ALT (SGPT) 18 U/L (Less than 45); AST (SGOT) 26 U/L (11-34); Albumin 3.9 g/dL (3.1-4.5); Alkaline Phosphatase 129 U/L (40-110); Anion Gap 20 mmol/L (10-20); BUN (Urea Nitrogen) 14 mg/dL (8.4-25.7); Bilirubin, Total 0.4 mg/dL (0.3-1.2); Calc. Creatinine Clearance 0 mL/min (70-130); Calcium 9.7 mg/dL (7.8-10.44); Carbon Dioxide 24 mmol/L (23-31); Chloride 96 mmol/L (98-107); Estimated GFR 96; Globulin 3.7 g/dL (2.4-3.5); Glucose 258 mg/dL (80-115); Magnesium 1.7 mg/dL (1.6-2.6); Potassium 3.8 mmol/L (3.5-5.1); Protein, Total 7.6 g/dL (5.8-8.1); Sodium 136 mmol/L (136-145)
[2024-10-21] MEDS ORDERED: Aspirin Chewable 81 MG TAB ONE (15:06)
[2024-10-21] MEDS ORDERED: Dextrose 5% in Water 1,000 ML IV PRN (16:13)
[2024-10-21] MEDS ORDERED: Glucagon 1 MG/ML KIT IM PRN (16:13)
[2024-10-21] MEDS ORDERED: Dextrose 50% Abboject 50 ML SYRINGE SLOW IVP PRN (16:13)
[2024-10-21] MEDS ORDERED: Acetaminophen 325 MG TAB PO PRN (16:13)
[2024-10-21] MEDS ORDERED: Albuterol 200 PUFF (6.7GM INHALER) INH PRN (16:22)
[2024-10-21 16:47] LABS: Actual Bicarbonate (HCO3v) 25.9 mEq/L (22-28); Base Excess 2.2 mEq/L (-2.0 to +3.0); Calcium, Ionized (venous) 1.12 mmol/L (1.16-1.32); Hematocrit-VBG 38 % (42.0-52.0); Potassium (VBG) 3.55 mmol/L (3.70-5.30); Sodium 137 mmol/L (133-146)
[2024-10-21 16:55] LABS: Troponin I 0.019 ng/mL (< 0.028)
[2024-10-21] MEDS: Sodium Chloride 0.9% 500 ML IV SCH (18:36)
[2024-10-21] MEDS: Insulin Glargine 30 UNITS/0.3 ML VIAL SC SCH (22:02)
[2024-10-21] MEDS: Lisinopril 10 MG TAB PO SCH (22:03)
[2024-10-21] MEDS: Pantoprazole 40 MG DR.TAB PO SCH (22:03)
[2024-10-21] MEDS: Tacrolimus 1 MG CAP PO SCH (22:03)
[2024-10-21] MEDS: Atorvastatin Calcium 40 MG TAB PO SCH (22:03)
[2024-10-21] MEDS: Tamsulosin HCl 0.4 MG CAP PO SCH (22:03)
[2024-10-21] MEDS: Mycophenolate DR 180 MG TAB PO SCH (22:06)
[2024-10-22 05:00] LABS: #Basophils 0.07 10x3/uL (0.0-0.2); %Basophils 0.8 % (0.0-1.0); %Eosinophils 3.7 % (0.0-10.0); %Lymphocytes 12.5 % (21.0-51.0); %Monocytes 8.3 % (0.0-10.0); %Neutrophils 73.7 % (42.0-75.0); Hematocrit 38.4 % (42.0-52.0); Hemoglobin 11.8 g/dL (14.0-18.0); Mean Corpuscular HGB CONC 30.7 g/dL (32.0-36.0); Mean Corpuscular Hemoglobin 25.8 pg (27.0-31.0); Mean Platelet Volume 10.4 fL (7.4-10.4); Platelet Count 247 10x3/uL (130-400); Red Blood Cell (RBC) Count 4.57 mill/uL (4.70-6.10)
[2024-10-22 05:15] LABS: ALT (SGPT) 14 U/L (Less than 45); AST (SGOT) 21 U/L (11-34); Albumin 3.2 g/dL (3.1-4.5); Alkaline Phosphatase 94 U/L (40-110); Anion Gap 13 mmol/L (10-20); BUN (Urea Nitrogen) 15 mg/dL (8.4-25.7); Bilirubin, Total 0.4 mg/dL (0.3-1.2); Calc. Creatinine Clearance 116 mL/min (70-130); Calcium 8.7 mg/dL (7.8-10.44); Carbon Dioxide 25 mmol/L (23-31); Chloride 104 mmol/L (98-107); Estimated GFR 99; Glucose 184 mg/dL (80-115); Potassium 3.4 mmol/L (3.5-5.1); Protein, Total 6.2 g/dL (5.8-8.1); Sodium 139 mmol/L (136-145)
[2024-10-22] MEDS: Insulin Lispro 100 UNIT/ML 10 ML VIAL SC PRN (06:32)
[2024-10-22] MEDS: Cyanocobalamin (Vitamin B-12) 1,000 MCG TAB PO SCH (08:45)
[2024-10-22] MEDS: Cholecalciferol 1,000 UNITS (25 MCG) TAB PO SCH (08:45)
[2024-10-22] MEDS: Aspirin Chewable 81 MG TAB PO SCH (08:45)
[2024-10-22] MEDS: Furosemide 80 MG TAB PO SCH (08:46)
[2024-10-22] MEDS: Ferrous Sulfate 325 MG TAB PO SCH (08:46)
[2024-10-22] MEDS: Magnesium Oxide 400 MG TAB PO SCH (08:46)
[2024-10-22] MEDS: Empagliflozin 25 MG TAB PO SCH (08:46)
[2024-10-22] MEDS: Multivitamin W/ Minerals 1 TAB PO SCH (08:46)
[2024-10-22] MEDS: Enoxaparin 40 MG (0.4 mL) SYRINGE SC SCH (08:46)
[2024-10-22] MEDS: predniSONE 5 MG TAB PO SCH (08:47)
[2024-10-22] MEDS: Potassium Chloride 10 MEQ TAB PO SCH (08:47)
[2024-10-22] MEDS: Fluticasone Propionate Nasal Spray 16 gm Bottle NASAL SCH (08:56)
[2024-10-22] MEDS ORDERED: Lactated Ringer's 500 ML IV SCH (09:00)
[2024-10-22] MEDS: Potassium Chloride 20 MEQ TAB PO SCH (09:35)
[2024-10-22] MEDS: Lactated Ringer's 1,000 ML IV SCH (09:36)
[2024-10-23 01:18] VITALS: BMI 29.9
[2024-10-23 04:24] LABS: #Basophils 0.07 10x3/uL (0.0-0.2); %Basophils 0.7 % (0.0-1.0); %Eosinophils 2.1 % (0.0-10.0); %Lymphocytes 11.9 % (21.0-51.0); %Monocytes 8.1 % (0.0-10.0); %Neutrophils 76.4 % (42.0-75.0); Hematocrit 38.6 % (42.0-52.0); Mean Corpuscular HGB CONC 31.1 g/dL (32.0-36.0); Mean Corpuscular Hemoglobin 25.9 pg (27.0-31.0); Mean Corpuscular Volume 83.4 fL (78.0-98.0); Platelet Count 220 10x3/uL (130-400); RBC Distribution Width 18.3 % (11.5-14.5); Red Blood Cell (RBC) Count 4.63 mill/uL (4.70-6.10)
[2024-10-23 10:03] LABS: ALT (SGPT) 16 U/L (Less than 45); AST (SGOT) 19 U/L (11-34); Albumin 3.4 g/dL (3.1-4.5); Alkaline Phosphatase 93 U/L (40-110); Anion Gap 13 mmol/L (10-20); BUN (Urea Nitrogen) 13 mg/dL (8.4-25.7); Bilirubin, Total 0.3 mg/dL (0.3-1.2); Calc. Creatinine Clearance 125 mL/min (70-130); Carbon Dioxide 22 mmol/L (23-31); Chloride 105 mmol/L (98-107); Estimated GFR 101; Globulin 3.1 g/dL (2.4-3.5); Glucose 263 mg/dL (80-115); Potassium 3.8 mmol/L (3.5-5.1); Protein, Total 6.5 g/dL (5.8-8.1); Sodium 136 mmol/L (136-145)
[2024-10-23] MEDS: Potassium Chloride 20 MEQ TAB PO SCH (10:04)
[2024-10-23] MEDS: Metoprolol Tartrate 25 MG TAB PO SCH ×2 (15:44→20:28)
[2024-10-23] MEDS: Insulin Lispro 100 UNIT/ML 10 ML VIAL SC PRN (15:44)
[2024-10-24 04:22] LABS: #Basophils 0.08 10x3/uL (0.0-0.2); %Basophils 0.8 % (0.0-1.0); %Eosinophils 2.9 % (0.0-10.0); %Lymphocytes 12.6 % (21.0-51.0); %Monocytes 7.3 % (0.0-10.0); %Neutrophils 75.8 % (42.0-75.0); Hematocrit 39.3 % (42.0-52.0); Hemoglobin 11.8 g/dL (14.0-18.0); Mean Corpuscular Hemoglobin 25.5 pg (27.0-31.0); Mean Corpuscular Volume 85.1 fL (78.0-98.0); Mean Platelet Volume 10.1 fL (7.4-10.4); Platelet Count 262 10x3/uL (130-400); Red Blood Cell (RBC) Count 4.62 mill/uL (4.70-6.10)
[2024-10-24 04:38] LABS: ALT (SGPT) 14 U/L (Less than 45); AST (SGOT) 21 U/L (11-34); Albumin 3.2 g/dL (3.1-4.5); Alkaline Phosphatase 87 U/L (40-110); Anion Gap 13 mmol/L (10-20); BUN (Urea Nitrogen) 13 mg/dL (8.4-25.7); Bilirubin, Total 0.3 mg/dL (0.3-1.2); Calc. Creatinine Clearance 125 mL/min (70-130); Carbon Dioxide 24 mmol/L (23-31); Chloride 106 mmol/L (98-107); Estimated GFR 101; Glucose 142 mg/dL (80-115); Potassium 3.4 mmol/L (3.5-5.1); Protein, Total 6.2 g/dL (5.8-8.1); Sodium 140 mmol/L (136-145)
[2024-10-24 18:10] VITALS: BP 160/84; TEMP 97.9
[2024-10-25] MEDS ORDERED: Metoprolol Succinate XL 50 MG ER.TAB PO SCH (09:00)
[2024-10-25] MEDS ORDERED: FLU (Fluarix Triv) TS24-25(6MOS UP)/PF 45 MCG/0.5 ML Syringe IM ONE (09:00)
[2024-10-26 13:14] LABS: Tacrolimus 5.5 ng/mL (5.0-20.0)
== END 2024-10-24 18:25 | disposition home or self-care (01) | DRG 309 ==
LOC: ERS 12:47 → 2NO 15:52 → OBSVTOIN 10-23 06:50
PROVIDERS: ADMIT Internal Medicine; ATTEND Internal Medicine
DX: R00.0 Tachycardia, unspecified (principal); J45.909 Unspecified asthma, uncomplicated; I10 Essential (primary) hypertension; Z66 Do not resuscitate; E11.65 Type 2 diabetes mellitus with hyperglycemia; I45.10 Unspecified right bundle-branch block; R01.1 Cardiac murmur, unspecified; I35.0 Nonrheumatic aortic (valve) stenosis; D64.9 Anemia, unspecified; E86.1 Hypovolemia; Z79.899 Other long term (current) drug therapy; Z79.51 Long term (current) use of inhaled steroids; Z94.4 Liver transplant status
CPT/HCPCS: 36415; 36416; 71045; 80053; 80197; 82010; 82805; 83605; 83735; 83880; 84443; 84484; 85025; 86850; 86900; 86901; 93005; 93010; 93970; 96361; G0378; J1650; J1815; J7030; J7120; J7507; J7512; J7518